=== PATIENT | male | born 1955 | race Caucasian/White ===

== ENCOUNTER 2023-07-08 08:56 | Inpatient (IN) | payer MEDICARE, MEDICAID ==
[2023-07-05 10:09] LABS: BASOPHILS % (AUTO) 0.6 % (0-1); EOSINOPHILS # (AUTO) 0.1 X10'3 (0-0.9); EOSINOPHILS % (AUTO) 1.4 % (0-6); LYMPHOCYTES # (AUTO) 1.7 X10'3 (1.1-4.8); LYMPHOCYTES % (AUTO) 26.8 % (21-51); MEAN CORPUSCULAR HEMOGLOBIN 32.1 PG (27.0-31.0); MEAN CORPUSCULAR HGB CONC 33.9 g/dL (33.0-36.5); MEAN CORPUSCULAR VOLUME 94.5 FL (78-98); MEAN PLATELET VOLUME 9.3 FL (7.4-10.4); MONOCYTES # (AUTO) 0.5 X10'3 (0-0.9); MONOCYTES % (AUTO) 8.4 % (2-12); NEUTROPHILS % (AUTO) 62.8 % (42-75); PRE OP HEMATOCRIT 47.1 % (42.0-52.0); PRE OP PLATELET COUNT 200 X10'3 (140-440); PRE OP WHITE BLOOD COUNT 6.4 10'3 (4.8-10.8); RED BLOOD COUNT 4.98 X10'6 (4.70-6.10); RED CELL DISTRIBUTION WIDTH 13.9 % (11.5-14.5)
[2023-07-05 10:22] LABS: PRE OP PROTIME 10.6 SECONDS (9.0-12.0)
[2023-07-05 10:23] LABS: ALBUMIN/GLOBULIN RATIO 1.1 (1.1-1.5); ALKALINE PHOSPHATASE 54 IU/L (46-116); BLOOD UREA NITROGEN 24 MG/DL (7-18); CALCIUM 9.6 MG/DL (8.5-10.1); CHLORIDE 103 MMOL/L (99-107); CREATININE 0.89 MG/DL (0.60-1.10); PRE OP ALT 27 U/L (30-65); PRE OP ANION GAP 7 (8-16); PRE OP AST 14 U/L (10-37); PRE OP BILIRUB, TOTAL 0.6 MG/DL (0.0-1.0); PRE OP GLUCOSE 105 MG/DL (70-104); PRE OP POTASSIUM 3.7 MMOL/L (3.4-5.1); PRE OP SODIUM 142 MMOL/L (135-145); TOTAL CARBON DIOXIDE 31.6 MMOL/L (24-32); TOTAL PROTEIN 7.7 G/DL (6.4-8.2); eGFR 85 ML/MIN
[2023-07-08] VITALS (26 sets, daily range): BP systolic 78–100; BP diastolic 46–76; PULSE 58–85; RESP 13–16; TEMP 97.7–98.1; O2SAT 92–99
[~2023-07-08] VITALS: Ht 182.9 cm; Wt 107.1 kg
[~2023-07-08 08:56] MED LIST: ALBU18HF2 INH; APIX5TAB3 PO; BUDE10.2 IH; CHOL500050 PO; CLON0.1T PO; DOCUMENT DATE & TIME OF BETA-BLOCKER PO ONE; HYDR25TA5 PO; HYDROmorphone 1 mg/ml syringe IV PRN; HYDROmorphone inj. 0.5 MG/0.5 ML DISP.SYRIN IV PRN; LORA10TA7 PO; MEPO100A; METO-384 PO; MONT-40 PO; NORMAL SALINE IV ONE; PARO30TA4 PO; QUET25TA PO; TRANEXAMIC ACID IV ONE; VANCOMYCIN 1,500MG inj. 1,500 MG in normal saline 500ml IV soln 300 ML IV ONE; acetaminophen 325mg tablet PO PRN; bisacodyl 10mg suppository rectal RC PRN; diphenhydrAMINE 25mg capsule PO PRN; famotidine 20mg tablet PO ONE; magnesium hydroxide 30ml (MOM) UD suspension PO PRN; naloxone 0.4 mg/ml inj IV PRN; ondansetron/PF 4mg/2ml inj IV PRN
[2023-07-08] MEDS ORDERED: albuterol 2.5 MG/3 ML nebule NEB PRN (10:15)
[2023-07-08] MEDS ORDERED: acetaminophen 325mg tablet PO ONE (10:30)
[2023-07-08] MEDS ORDERED: celeCOXIB 100mg capsule PO ONE (10:30)
[2023-07-08] MEDS ORDERED: gabapentin 300mg capsule PO ONE (10:30)
[2023-07-08] MEDS ORDERED: metoclopramide 5 mg/ml inj IV ONE (10:35)
[2023-07-08] MEDS ORDERED: OXYcodone immediate-release 10MG tablet PO ONE (10:35)
[2023-07-08] MEDS ORDERED: epiNEPHrine 1 mg/ml inj ONE (11:36)
[2023-07-08] MEDS ORDERED: ROPIVAcaine 0.5% (5mg/ml) 30ml vial ONE ×2 (11:37→13:18)
[2023-07-08] MEDS ORDERED: cloNIDine hcl/PF 100mcg/ml inj ONE (11:37)
[2023-07-08] MEDS ORDERED: vancomycin 1,000mg inj ONE (11:47)
[2023-07-08] MEDS ORDERED: oxyCODONE IR 5mg (immed. release) tablet PO ONE (12:00)
[2023-07-08] MEDS ORDERED: oxyCODONE SR 10mg (sust. release) tab -2 tabs (20mg) PO ONE (12:20)
[2023-07-08] MEDS: ringers solution, lacted 1,000 ML IV SCH (12:23)
--- NOTE | 2023-07-08 12:43 | NUR ---
HALF OF ORDERED DOSE OF OXY GIVEN PER ANESTHESIA.
--- NOTE | 2023-07-08 12:45 | NUR ---
CMS NOTE- PT STATES HE SHOWERED X5 DAYS WITH HIBICLENS. MD DOES NOT ORDER MUPIROCIN OINTMENT. PT EDUCATED ON ON-Q. PT HAS BILAT PALPABLE DORSALIS PEDIS PULSES. PT STATES HE READ BOOKLET AND HAS BEEN EDUCATED ON USE OF IS
[2023-07-08] MEDS ORDERED: MIDAZolam 1 MG/ML 5ML VIAL ONE (12:55)
[2023-07-08] MEDS ORDERED: fentaNYL/PF 50MCG/1 ML 2ML syringe ONE (12:55)
[2023-07-08] MEDS ORDERED: BUPIVAcaine/PF 7.5mg/ml (0.75%) 10ml vial ONE (13:18)
[2023-07-08] MEDS ORDERED: vancomycin 1,000mg inj IVT ONE ×2 (13:52→14:14)
[2023-07-08] MEDS ORDERED: ROPIVAcaine 0.2% (10 MG/5 ML) BOLUS INJECTION ADDCANAL PRN (14:10)
[2023-07-08] MEDS ORDERED: ROPIVAcaine 0.2%/PF PUMP/bolus 545 ML ADDCANAL SCH (14:10)
[2023-07-08] MEDS ORDERED: proCHLORperazine 10 MG/2 ml inj IV PRN (14:10)
[2023-07-08] MEDS ORDERED: meperidine/PF 25mg/ml syringe IV PRN ×3 (14:10)
[2023-07-08] MEDS ORDERED: ringers solution, lacted 1,000 ML IV SCH (14:10)
[2023-07-08] MEDS ORDERED: morphine 2 MG/ML inj. syringe IV PRN (14:10)
[2023-07-08] MEDS ORDERED: morphine 4 MG/ML inj SYRINge IV PRN (14:10)
[2023-07-08] MEDS ORDERED: ondansetron/PF 4mg/2ml inj IV PRN (14:10)
[2023-07-08] MEDS: potassium cl 20mEq in 1/2 NS 1,000 ML IV SCH ×3 (14:45→22:45)
--- NOTE | 2023-07-08 15:20 | NUR ---
Received from OR via BED, accompanied by Anesthesiologist and report given by Anesthesiologist. PATIENT WAKING UP, NO S/S OF PAIN, V/S WNL, SCD ON, 20G TO RUE, GREGG drsg to LEFT KNEE CDI with ON Q BALL AT 2ML/HR.
[2023-07-08] MEDS: cefazolin 2gm/D5W 100mL 100 ML IV SCH ×2 (16:00→23:45)
[2023-07-08] MEDS ORDERED: NORMAL SALINE IV ONE (18:30)
[2023-07-08] MEDS ORDERED: TRANEXAMIC ACID IV ONE (18:30)
--- NOTE | 2023-07-08 18:40 | NUR ---
PATIENT A&OX4, DENIES PAIN, V/S WNL, SCD ON, 20G TO RUE, GREGG drsg to LEFT KNEE CDI with ON Q BALL AT 2ML/HR. PATIENT TAKEN TO ROOM WITH ALL BELONGINGS AND HOOKED UP TO MONITORS IN ROOM AND GIVEN CALL LIGHT, REPORT GIVEN TO RN WHO HAS TAKEN OVER PATIENT CARE.
--- NOTE | 2023-07-08 18:50 | NUR ---
Pt arrived from recovery room at this time, I took report from Kaelyn FREIRE. Pt alert/orientated to room and call light is in his reach. Knee incision is cdi and OnQ ball is in place and shahid is intact. Post op vitals are being started and I increased his OnQ ball to 6ml/hr from 4ml's due to pain.
[2023-07-08] MEDS: HYDROcodone/acetaminophen 10/325mg tab PO PRN (19:39)
[2023-07-08] MEDS ORDERED: VANCOMYCIN 1,500MG inj. 1,500 MG in normal saline 500ml IV soln 300 ML IV ONE (20:00)
[2023-07-08] MEDS: gabapentin 300mg capsule PO SCH ×2 (20:28→21:00)
[2023-07-08] MEDS: ascorbic acid 500mg tablet PO SCH (20:29)
[2023-07-08] MEDS: sennosides 8.6mg tablet PO SCH (20:29)
[2023-07-08] MEDS: QUEtiapine 25mg tablet PO SCH (20:29)
[2023-07-08] MEDS: apixaban 5mg tablet PO SCH (20:29)
[2023-07-09] VITALS (8 sets, daily range): BP systolic 98–119; BP diastolic 62–76; PULSE 67–92; RESP 16–18; TEMP 97.4–98.9; O2SAT 95–98
[2023-07-09] MEDS: HYDROcodone/acetaminophen 10/325mg tab PO PRN ×3 (04:39→21:17)
[2023-07-09] MEDS: potassium cl 20mEq in 1/2 NS 1,000 ML IV SCH ×3 (06:45→22:45)
--- NOTE | 2023-07-09 06:55 | NUR ---
Problems reprioritized. Patient report given, questions answered & plan of care reviewed with Sabi FREIRE. .
[2023-07-09 07:48] LABS: BASOPHILS % (AUTO) 0.1 % (0-1); EOSINOPHILS % (AUTO) 0 % (0-6); HEMATOCRIT 39.7 % (42.0-52.0); HEMOGLOBIN 13.4 g/dl (14.0-17.9); LYMPHOCYTES # (AUTO) 0.8 X10'3 (1.1-4.8); LYMPHOCYTES % (AUTO) 7.1 % (21-51); MEAN CORPUSCULAR HEMOGLOBIN 31.9 PG (27.0-31.0); MEAN CORPUSCULAR HGB CONC 33.7 g/dL (33.0-36.5); MEAN CORPUSCULAR VOLUME 94.7 FL (78-98); MEAN PLATELET VOLUME 9.6 FL (7.4-10.4); MONOCYTES # (AUTO) 0.6 X10'3 (0-0.9); MONOCYTES % (AUTO) 4.9 % (2-12); NEUTROPHILS # (AUTO) 9.9 X10'3 (1.8-7.7); NEUTROPHILS % (AUTO) 87.9 % (42-75); PLATELET COUNT 174 X10'3 (140-440); RED BLOOD COUNT 4.19 X10'6 (4.70-6.10); RED CELL DISTRIBUTION WIDTH 13.7 % (11.5-14.5); WHITE BLOOD COUNT 11.3 X10'3 (4.5-11.0)
[2023-07-09] MEDS ORDERED: PARoxetine 30mg tablet PO SCH (08:00)
[2023-07-09 08:04] LABS: ANION GAP 10 (8-16); CHLORIDE 100 MMOL/L (99-107); POTASSIUM 4.2 MMOL/L (3.5-5.1); SODIUM 137 MMOL/L (135-145); TOTAL CARBON DIOXIDE 27.1 MMOL/L (24-32)
[2023-07-09] MEDS: cefazolin 2gm/D5W 100mL 100 ML IV SCH (10:08)
[2023-07-09] MEDS: ascorbic acid 500mg tablet PO SCH ×2 (10:09→20:59)
[2023-07-09] MEDS: gabapentin 300mg capsule PO SCH ×3 (10:09→20:58)
[2023-07-09] MEDS: multivitamins, therapeutics tablet PO SCH (10:09)
[2023-07-09] MEDS: loratadine 10mg tablet PO SCH (10:09)
[2023-07-09] MEDS: apixaban 5mg tablet PO SCH ×2 (10:09→20:58)
[2023-07-09] MEDS: cloNIDine 0.1 mg tablet PO SCH (10:10)
[2023-07-09] MEDS: HYDROchlorothiazide 25mg tablet PO SCH (10:10)
[2023-07-09] MEDS: montelukast 10mg tablet PO SCH (10:10)
[2023-07-09] MEDS: metoprolol succinate 25mg (24-HOUR) SR. Tablet PO SCH (10:10)
--- NOTE | 2023-07-09 11:23 | NUR ---
Joint surgery consult: Pt s/p knee surgery per EMR. Attempted to see pt however pt was busy with another disciplined. Placed high protein handout in pt's chart due to short staffing however will remain available for verbal discussion Addendum: 07/09/23 at [address] Amended: Links added.
[2023-07-09] MEDS ORDERED: PARoxetine 10mg tablet PO SCH (13:15)
[2023-07-09] MEDS: ringers solution, lacted 1,000 ML IV SCH (13:41)
[2023-07-09] MEDS: PARoxetine 10mg tablet PO SCH (16:10)
--- NOTE | 2023-07-09 18:14 | NUR ---
Problems reprioritized. Patient report given, questions answered & plan of care reviewed with Jyotsna FREIRE and Roberth ESPAÑA.
--- NOTE | 2023-07-09 19:08 | NUR ---
Patient in room [facility]TH[facility] 4024. I have received report from MOUNA Celestin and had the opportunity to ask questions and assume patient care.
[2023-07-09] MEDS ORDERED: albuterol 60 PUFF/8GM Inhaler (90mcg/1 puff) IH PRN (19:11)
[2023-07-09] MEDS: QUEtiapine 25mg tablet PO SCH (20:59)
[2023-07-09] MEDS: sennosides 8.6mg tablet PO SCH (20:59)
[2023-07-09] MEDS: Budesonide/Formoterol Fumarate (Symbicort 160-4.5 Mcg Inhaler) IH SCH (20:59)
[2023-07-09] MEDS: celeCOXIB 100mg capsule PO SCH (20:59)
[2023-07-10 04:32] LABS: BASOPHILS % (AUTO) 0.3 % (0-1); EOSINOPHILS % (AUTO) 0.2 % (0-6); HEMATOCRIT 39.6 % (42.0-52.0); HEMOGLOBIN 13.3 g/dl (14.0-17.9); LYMPHOCYTES # (AUTO) 1.9 X10'3 (1.1-4.8); LYMPHOCYTES % (AUTO) 17.2 % (21-51); MEAN CORPUSCULAR HEMOGLOBIN 31.9 PG (27.0-31.0); MEAN CORPUSCULAR HGB CONC 33.5 g/dL (33.0-36.5); MEAN CORPUSCULAR VOLUME 95.5 FL (78-98); MEAN PLATELET VOLUME 9.7 FL (7.4-10.4); MONOCYTES # (AUTO) 1.1 X10'3 (0-0.9); MONOCYTES % (AUTO) 9.7 % (2-12); NEUTROPHILS # (AUTO) 7.9 X10'3 (1.8-7.7); NEUTROPHILS % (AUTO) 72.6 % (42-75); PLATELET COUNT 179 X10'3 (140-440); RED BLOOD COUNT 4.15 X10'6 (4.70-6.10); RED CELL DISTRIBUTION WIDTH 13.9 % (11.5-14.5); WHITE BLOOD COUNT 10.9 X10'3 (4.5-11.0)
[2023-07-10 05:00] VITALS: BP 105/70; PULSE 85; RESP 18; TEMP 97.4; O2SAT 98
[2023-07-10] MEDS: HYDROcodone/acetaminophen 10/325mg tab PO PRN ×2 (05:15→11:35)
--- NOTE | 2023-07-10 06:31 | NUR ---
Problems reprioritized. Patient report given, questions answered & plan of care reviewed with MOUNA Escobar.
--- NOTE | 2023-07-10 06:50 | NUR ---
Patient in room ORTH[facility] 4024. I have received report from Jyotsna and had the opportunity to ask questions and assume patient care.
[2023-07-10] MEDS: montelukast 10mg tablet PO SCH (07:08)
[2023-07-10] MEDS: metoprolol succinate 25mg (24-HOUR) SR. Tablet PO SCH (07:08)
[2023-07-10] MEDS: apixaban 5mg tablet PO SCH (07:08)
[2023-07-10] MEDS: celeCOXIB 100mg capsule PO SCH (07:08)
[2023-07-10] MEDS: multivitamins, therapeutics tablet PO SCH (07:08)
[2023-07-10] MEDS: gabapentin 300mg capsule PO SCH ×2 (07:08→13:06)
[2023-07-10] MEDS: HYDROchlorothiazide 25mg tablet PO SCH (07:08)
[2023-07-10] MEDS: ascorbic acid 500mg tablet PO SCH (07:08)
[2023-07-10] MEDS: loratadine 10mg tablet PO SCH (07:08)
[2023-07-10] MEDS: Budesonide/Formoterol Fumarate (Symbicort 160-4.5 Mcg Inhaler) IH SCH (07:09)
[2023-07-10] MEDS: PARoxetine 10mg tablet PO SCH (07:09)
[2023-07-10] MEDS: cloNIDine 0.1 mg tablet PO SCH (08:00)
[2023-07-10 10:00] VITALS: BP 101/66; PULSE 86; RESP 18; TEMP 97.7; O2SAT 95
[2023-07-10 12:18] VITALS: PULSE 89; RESP 16; O2SAT 95
== END 2023-07-10 16:20 | disposition home or self-care (01) | DRG 470 ==
LOC: PAS 08:56 → ORTHO 4S 08:57 → UNDOADMIN 18:44 → ORTHO 4S 18:44
PROVIDERS: ADMIT Orthopaedic Surgery; ATTEND Orthopaedic Surgery
PROC: 3E0T3BZ Introduction of Anesthetic Agent into Peripheral Nerves and Plexi, Percutaneous Approach (ICD-10-PCS; 2023-07-08)
PROC: 3E0T33Z Introduction of Anti-inflammatory into Peripheral Nerves and Plexi, Percutaneous Approach (ICD-10-PCS; 2023-07-08)
PROC: 0SRD0J9 Replacement of Left Knee Joint with Synthetic Substitute, Cemented, Open Approach (ICD-10-PCS; principal; 2023-07-08 12:42)
DX: M17.12 Unilateral primary osteoarthritis, left knee (principal)
CPT/HCPCS: 36415; 71046; 73560; 80051; 80053; 82948; 85025; 85610; 85730; 86885; 86900; 86901; 87081; 93005; 94760; 97110; 97116; 97162; 97530; A4215; A4615; A7000; C1713; C1776; G0378; J0171; J0690; J0735; J1170; J2250; J2765; J2795; J3010; J3370; J3480; J3490; J7040; J7120

== ENCOUNTER 2023-08-31 11:35 | Day surgery (SDC) | payer MEDICARE, MEDICAID ==
[2023-08-31] VITALS (11 sets, daily range): BP systolic 99–128; BP diastolic 50–79; PULSE 63–101; RESP 16; TEMP 97.9; O2SAT 94–100
[~2023-08-31] VITALS: Ht 182.9 cm; Wt 102.2 kg
[~2023-08-31 11:35] MED LIST changes: -DOCUMENT DATE & TIME OF BETA-BLOCKER PO ONE; -HYDROmorphone 1 mg/ml syringe IV PRN; -HYDROmorphone inj. 0.5 MG/0.5 ML DISP.SYRIN IV PRN; -NORMAL SALINE IV ONE; -TRANEXAMIC ACID IV ONE; -VANCOMYCIN 1,500MG inj. 1,500 MG in normal saline 500ml IV soln 300 ML IV ONE; -acetaminophen 325mg tablet PO PRN; -bisacodyl 10mg suppository rectal RC PRN; -diphenhydrAMINE 25mg capsule PO PRN; -famotidine 20mg tablet PO ONE; -magnesium hydroxide 30ml (MOM) UD suspension PO PRN; -naloxone 0.4 mg/ml inj IV PRN; -ondansetron/PF 4mg/2ml inj IV PRN
[2023-08-31] MEDS ORDERED: fentaNYL/PF 50MCG/1 ML 2ML syringe IV ONE (12:00)
[2023-08-31] MEDS ORDERED: normal saline 1000ml 1,000 ML IV SCH (12:00)
[2023-08-31] MEDS ORDERED: MIDAZolam 1mg/ml 10ml vial IV ONE (12:00)
[2023-08-31 12:23] LABS: BASOPHILS % (AUTO) 0.7 % (0-1); EOSINOPHILS % (AUTO) 0.5 % (0-6); HEMATOCRIT 39.9 % (42.0-52.0); HEMOGLOBIN 13.4 g/dl (14.0-17.9); LYMPHOCYTES # (AUTO) 1.6 X10'3 (1.1-4.8); MEAN CORPUSCULAR HEMOGLOBIN 30.5 PG (27.0-31.0); MEAN CORPUSCULAR HGB CONC 33.6 g/dL (33.0-36.5); MEAN CORPUSCULAR VOLUME 90.9 FL (78-98); MEAN PLATELET VOLUME 8.6 FL (7.4-10.4); MONOCYTES # (AUTO) 0.5 X10'3 (0-0.9); NEUTROPHILS # (AUTO) 4.2 X10'3 (1.8-7.7); NEUTROPHILS % (AUTO) 65.8 % (42-75); PLATELET COUNT 257 X10'3 (140-440); RED BLOOD COUNT 4.39 X10'6 (4.70-6.10); RED CELL DISTRIBUTION WIDTH 14.1 % (11.5-14.5); WHITE BLOOD COUNT 6.5 X10'3 (4.5-11.0)
[2023-08-31] MEDS ORDERED: OXYGEN NASALCANN (12:28)
[2023-08-31] MEDS ORDERED: SOTA80TA10 PO (12:28)
[2023-08-31] MEDS ORDERED: [UNRECOGNIZED DRUG - OTHER] (12:31)
[2023-08-31 12:32] LABS: ALBUMIN 3.6 G/DL (3.4-5.0); ANION GAP 7 (8-16); BLOOD UREA NITROGEN 21 MG/DL (7-18); BUN/CREATININE RATIO 24.7 (10.0-20.0); CALCIUM 9.4 MG/DL (8.5-10.1); CHLORIDE 102 MMOL/L (99-107); CREATININE 0.85 MG/DL (0.60-1.10); GLUCOSE 94 MG/DL (70-104); POTASSIUM 3.2 MMOL/L (3.5-5.1); SODIUM 139 MMOL/L (135-145); TOTAL CARBON DIOXIDE 29.7 MMOL/L (24-32); eCRCL 93 ML/MIN; eGFR 90 ML/MIN
== END 2023-08-31 15:35 | disposition home or self-care (01) ==
LOC: SSTAY O 11:35
PROVIDERS: ATTEND Student in an Organized Health Care Education/Training Program
DX: I48.91 Unspecified atrial fibrillation (principal); I10 Essential (primary) hypertension; J44.9 Chronic obstructive pulmonary disease, unspecified; Z79.899 Other long term (current) drug therapy; Z79.01 Long term (current) use of anticoagulants; Z88.8 Allergy status to other drugs, medicaments and biological substances
CPT/HCPCS: 36415; 80048; 85025; 85610; 92960; 93005; J2250; J3010; J7030; A4620